=== PATIENT | female | born 1975 | race Caucasian/White ===

== ENCOUNTER → 2018-12-29 | Outpatient (CLI) | payer OTHER ==
[~2018-12-29] MED LIST: CIPROFLOXACIN500 M1; PERCOCET 5-3251 EACH PO; PYRIDIUM200 MG PO; TAMSULOSIN HCL0.4 MG PO
== END ==
LOC: ULTRA 15:13
DX: M71.21 Synovial cyst of popliteal space [Baker], right knee (principal); M79.661 Pain in right lower leg; M79.89 Other specified soft tissue disorders